=== PATIENT | male | born 2005 | race Caucasian/White ===

== ENCOUNTER 2023-02-28 20:49 | Emergency (ER) | payer OTHER ==
[~2023-02-28] VITALS: Ht 188 cm; Wt 113.6 kg
[2023-02-28] MEDS ORDERED: ACETAMINOPHEN 500 MG TAB PO ONE (21:30)
[2023-02-28] MEDS ORDERED: IBUPROFEN 600 MG TAB PO ONE (21:30)
[2023-02-28] MEDS ORDERED: SODIUM CHLORIDE 0.9% 1,000 ML IV ONE (21:30)
[2023-02-28 22:36] LABS: Rapid Influenza A Negative (Negative); Rapid Influenza B Negative (Negative)
[2023-02-28 22:39] LABS: COVID19 ANTIGEN SOFIA FIA POSITIVE (NEGATIVE)
[2023-02-28 23:34] VITALS: BP 115/63; PULSE 114; RESP 16; TEMP 98.4; O2SAT 98
[2023-03-01] MEDS ORDERED: ACET500T58 PO (00:13)
[2023-03-01] MEDS ORDERED: ZOFR4T PO (00:13)
[2023-03-01] MEDS ORDERED: IBUP-1455 PO (00:13)
== END 2023-03-01 01:25 | disposition home or self-care (01) ==
LOC: ER 20:49 → EDSEX 20:49 → ER 03-01 01:25
DX: U07.1 COVID-19 (principal)
CPT/HCPCS: 36415; 87426; 87804; 93005